=== PATIENT | female | born 1985 | race Two or more races ===

== ENCOUNTER 2019-02-02 10:56 | Emergency (ER) | payer OTHER ==
[~2019-02-02] VITALS: Ht 162.6 cm; Wt 78.9 kg
[2019-02-02 11:07] VITALS: BP 95/71; Ht 162.6 cm; Wt 78.9 kg
== END 2019-02-02 12:18 | disposition home or self-care (01) ==
LOC: ED 10:56
DX: F41.0 Panic disorder [episodic paroxysmal anxiety] (principal); F43.0 Acute stress reaction; F41.9 Anxiety disorder, unspecified; M06.9 Rheumatoid arthritis, unspecified; J45.909 Unspecified asthma, uncomplicated; Z88.8 Allergy status to other drugs, medicaments and biological substances

== ENCOUNTER 2019-02-08 10:45 | Emergency (ER) | payer OTHER ==
[~2019-02-08] VITALS: Ht 162.6 cm; Wt 78.9 kg
[2019-02-08 10:50] VITALS: Ht 162.6 cm; Wt 78.9 kg
[2019-02-08 11:30] VITALS: BP 128/84
== END 2019-02-08 11:08 | disposition home or self-care (01) ==
LOC: ED 10:45
DX: F41.9 Anxiety disorder, unspecified (principal); M35.00 Sjogren syndrome, unspecified; J45.909 Unspecified asthma, uncomplicated; I00 Rheumatic fever without heart involvement; Z88.8 Allergy status to other drugs, medicaments and biological substances